=== PATIENT | male | born 1965 | race Caucasian/White ===

== ENCOUNTER 2023-08-09 08:54 | Observation (INO) | payer OTHER, SELFPAY ==
[2023-08-09] VITALS (13 sets, daily range): BP systolic 140–228; BP diastolic 62–143; PULSE 87–116; RESP 14–19; TEMP 36.7–37.3; O2SAT 95–97; BMI 31.4
--- NOTE | 2023-08-09 09:08 | ED.CHESTPAIN ---
HPI - Chest Pain General Chief Complaint: Chest Pain Stated Complaint: SOB/HTN Time Seen by Provider: 08/09/23 09:01 Source: patient and EMS Mode of arrival: EMS Limitations: no limitations History of Present Illness HPI narrative: The 57-year-old male history of opiate use disorder, alcohol use disorder presents to the emergency department for complaints of substernal nonradiating chest pressure and shortness of breath that started this morning at approximately 07:00 while he was sitting, he reports pain got worse around 815 where he experience significant shortness of breath, patient reports it is hard to take a deep breath in. This is never happened to him before. He reports he called 911 because he thought he was having heart attack. Current daily drinker, last drink rum and coke last night. Denies fevers, chills, cough, sore throat, nausea, vomiting, abdominal pain, headache, vision changes, dizziness and weakness. Patient was noted to be hypertensive for EMS, patient explains to me upon arrival that he used to be on medications however he stopped taking them due to issues with his insurance. 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 Allergies Allergy/AdvReac Type Severity Reaction Status Date / Time No Known Allergies Allergy Verified 08/09/23 12:29 Review of Systems Review of Systems: Constitutional : No Weight loss, No Fever, No Chills, No Fatigue, No Malaise ENT/Mouth : No sore throat, No Rhinorrhea Eyes: No Eye Pain, No Swelling, No Redness Cardiovascular : + Chest Pain, + SOB, No Dyspnea on Exertion, No Orthopnea, No Edema, No Palpitations Respiratory : No Cough, No Sputum, No Wheezing Gastrointestinal : No Nausea, No Vomiting, No Diarrhea, No Constipation, No abdominal Pain, No Hematochezia, No Melena Genitourinary : No Dysuria, No Urinary Frequency, No Hematuria, Musculoskeletal : No joint pain, No Myalgias, No Joint Swelling Skin : No Skin Lesions, No rash Neuro : No Weakness, No Numbness, No Dizziness, No Headache Psych : No Anxiety/Panic, No Depression All other systems reviewed and are negative Yes all other systems are reviewed and are negative [facility] Past Medical History Attestation statement: The following information was validated with the patient. Source: old records reviewed and nursing notes reviewed Onset Date is defined in the Problem List Problems that require an onset date and time if occurred within 24 hrs of arrival to the ED Aortic Dissection and Rupture; Neurologic impairment; Cardiopulmonary Arrest; Endotracheal Intubation; Insertion or Replacement of Mechanical Circulatory Assist Device Social History Social History Alcohol intake: current Alcohol type: hard liquor Smoked in Last 30 Days: Yes Use of substances other than those prescribed or required for medical reasons: No Advance Directives: No Advance Directives Information Provided: Yes Physical Exam Vital Signs: Vital Signs: Last Vital Signs Temp 99.1 F 08/09/23 11:48 Pulse 99 08/09/23 11:48 Resp 18 08/09/23 11:48 BP 173/93 H 08/09/23 11:48 Pulse Ox 96 08/09/23 11:48 O2 Del Method Room Air 08/09/23 11:48 BMI result Body Mass Index 31.4 Hypertension noted. Appearance: Alert.? Oriented X3.? No acute distress.? Head: Normocephalic, atraumatic, no step-offs or deformities Eyes: Pupils equal, round and reactive to light.? ENT: Pharynx normal.? Neck: Normal inspection.? Neck supple.? CVS: Rapid rate normal rhythm likely sinus tachycardia heart rate around 120 beats per minute.? Pulses normal.? Respiratory: No respiratory distress.? Breath sounds diminished b/l.? Abdomen: Soft and nontender.? Skin: Skin warm and dry.? Normal skin color.? Normal skin turgor.? Extremities: No lower extremity edema.? No calf ttp. 5/5 strength to bilateral upper and lower extremities Neuro: Oriented X 3.? No motor deficit.? No sensory deficit. CN 2-12 intact Course Reevaluation(s) Reevaluation #1: CBC unremarkable. chemistry no acute findings requiring intervention. Troponin negative, BNP normal. Lipase normal. Ethanol negative. Dimr negative. Noted to have patchy left mid lung zone infiltrates concerns for pneumonia. Will obtain CT for confirmation. Blood cultures, lactic acid and antibiotics ordered. Time: 10:47 Reevaluation #2: Patient now states he is feeling slightly anxious and he thinks it is because he has been drinking a lot lately, he reports he typically does not drink often however due to the holidays he has been drinking more, heart rate still 110, blood pressure is coming down slowly. Patient evidently anxious. IV Ativan ordered. Plans probably hospital admission for pneumonia and likely alcohol withdrawal Time: 11:00 Reevaluation #3: Critical lactic acid 5.5 sepsis alert announced overhead. 30 cc/kilos bolus ordered. Patient getting his 2nd set of cultures at this time , antibiotics ordered. Time: 11:34 Medications Administered Generic Name Dose Route Start Last Admin Trade Name Freq PRN Reason Stop Dose Admin Sodium Chloride 2,814 mls @ 2,814 mls/hr 08/09/23 11:34 08/09/23 12:00 Ns 30 ml/kg infuse over 1 hr (2814 ml) 08/09/23 12:33 2,814 mls/hr IV Administration .Q1H STA Discontinued Medications Generic Name Dose Route Start Last Admin Trade Name Freq PRN Reason Stop Dose Admin Amlodipine Besylate 5 mg 08/09/23 09:09 08/09/23 09:45 Amlodipine Besylate 5 Mg Tablet PO 08/09/23 09:10 5 mg ONCE ONE Administration Protocol Ceftriaxone Sodium 1 gm/ 50 mls @ 100 mls/hr 08/09/23 10:45 08/09/23 11:54 Sodium Chloride IV 08/09/23 11:14 100 mls/hr ONCE ONE Administration Sodium Chloride 1,000 mls @ 999 mls/hr 08/09/23 10:45 08/09/23 10:49 Ns IV 08/09/23 11:45 999 mls/hr .Q1H1M JARED Administration Lorazepam 1 mg 08/09/23 10:47 08/09/23 10:51 Lorazepam 2 Mg/Ml Vial IVPUSH 08/09/23 10:48 1 mg STAT STA Administration Medical Decision Making Medical Decision Making [facility] Narrative: 0900 57-year-old male presents with chest pain and shortness of breath that started suddenly this morning. Physical examination with rapid regular rhythm likely sinus tachycardia heart rate around 120. Breath sounds diminished b/l Concerns for possible hypertensive urgency versus emergency versus arrhythmia versus ACS versus PE vs pna . Unlikely dissection, other differentials include metabolic derangements, alcohol withdrawal last drink was yesterday. Plan labs, imaging, EKG Differential Diagnosis Differential Diagnoses: The differential diagnosis associated with the presentation includes Concerns for possible hypertensive urgency versus emergency versus arrhythmia versus ACS versus PE vs pna. Unlikely dissection, other differentials include metabolic derangements, alcohol withdrawal last drink was yesterday. Admission/Observation Consideration of admission/observation: Escalation of care including admission/observation considered posssible Lab Data MDM Lab Attestation statement: I reviewed the patient's lab results. 08/09/23 09:26 08/09/23 09:26 Labs: Lab Results 08/09/23 08/09/23 Range/Units 09:26 11:05 WBC 6.0 (4.8-10.8) X10*3/uL RBC 4.99 (4.60-5.80) X10*6/uL Hgb 16.8 (14.0-18.0) g/dl Hct 47.0 (42.0-52.0) % MCV 94.2 (80.0-98.0) fL MCH 33.7 H (27.0-33.0) pg MCHC 35.7 (31.0-36.0) g/dl RDW 11.9 (11.0-16.0) % Plt Count 161 (160-400) X10*3/uL MPV 10.0 (9.4-12.4) fL Immature Gran % (Auto) 0.2 (0.0-0.4) % Neut % (Auto) 68.4 (45-73) % Lymph % (Auto) 21.6 (20-40) % [place] % (Auto) 8.0 (2-11) % Eos % (Auto) 1.3 (0-4) % Baso % (Auto) 0.5 (0-2) % Lymph # (Auto) 1.3 (1.2-4.9) X10*3/uL [place] # (Auto) 0.5 (0.1-1.2) X10*3/uL Eos # (Auto) 0.1 (0.0-0.4) X10*3/uL Baso # (Auto) 0.0 (0.0-0.2) X10*3/uL Abs Immat Gran (auto) 0.01 (0.00-0.03) X10*3/uL Absolute Neuts (auto) 4.1 (2.0-8.3) x10*3/uL Absolute Nucleated RBC 0.000 (0.0-0.012) X10*3/uL Nucleated RBC % (auto) 0.0 (0.0-0.2) /100WBC PT 12.0 (11.1-13.3) SEC INR 1.0 (0.9-1.1) D-Dimer High Sensitivty < 150 NG/ML Sodium 139 (135-145) mmol/L Potassium 4.8 (3.3-5.1) mmol/L Chloride 101 (96-108) mmol/L Carbon Dioxide 25 (22-29) mmol/L Anion Gap 18 (12-20) BUN 13 (9-16) mg/dL Creatinine 0.96 (0.5-1.4) mg/dL Estim Creat Clear Calc 96.6 Estimated GFR > 60 Random Glucose 139 H (60-115) mg/dL Lactic Acid 5.5 H* (0.5-2.0) mmol/L Calcium 9.5 (8.4-10.2) mg/dL Magnesium 1.8 (1.6-2.6) mg/dL Total Bilirubin 0.5 (0.0-1.0) mg/dL AST 46 H (5-37) U/L ALT 36 (0-40) U/L Alkaline Phosphatase 127 H (39-117) U/L Troponin I High Sens 3.2 (<3.5-35.0) ng/L B-Natriuretic Peptide 28 (<100) pg/mL Total Protein 7.6 (6.5-8.0) g/dL Albumin 4.3 (3.5-5.0) g/dL Lipase 44 (8-78) U/L Ethyl Alcohol < 10 mg/dL Influenza Type A (PCR) NEGATIVE (Negative) Influenza Type B (PCR) NEGATIVE (Negative) RSV RNA Qual (PCR) NEGATIVE (Negative) SARS-CoV-2 RNA (RT-PCR) NEGATIVE (Negative) Independent Interpretation I performed an independent interpretation of an: EKG (non ischemic ) and Plain X-Ray (pna) Radiology Impression Discussion of test interpretation with radiology: I have reviewed the radiologist's reading. Chronic Conditions Patient?s care impacted by: Other (Alcohol use disorder) Critical Care Time Critical Care Time Critical Care Time: Yes Total Critical Care Time: 45 Attestation: I attest to this time spent taking care of the patient, obtaining history, physical, reviewing labs, imaging, speaking to my attending, speaking to specialist. Discharge Plan Discharge Clinical Impression: Pneumonia, Chest pain, Elevated lactic acid level, Alcohol abuse with withdrawal Patient Disposition: Still a Patient
--- NOTE | 2023-08-09 13:13 | PM.IMHP ---
History of Present Illness Date of Service: 08/09/23 Attending physician on admission: Varinder Booth Chief Complaint: SOB, chest pain Pt is a 57-year-old male with a PMH significant for?HTN, GERD, opiate and alcohol use disorder not on home meds who presents to the ED for evaluation of sudden-onset SOB and chest pain. Pt states he woke up this morning at 6:30 and was laying in bed when he had an acute episode of SOB where he felt like he could not breath. He sat up to watch TV and feeling quickly passed. An hour or so later pt was getting ready to go to work and had a more prolonged episode of SOB that was accompanied by left-sided, non-radiating chest pain he describes as feeling like pinpricks over his heart. Reports having similar sensations with some frequency but never this severe. Pt had call an ambulance since he thought he was having a heart attack. Pt also notes he has been experiencing frequent right-sided headaches and pressure behind his right eye for the past few months that he ascribed to sinus infection. Has been taking lots of ibuprophen and Aleve the past 2 months for the pain to little effect. Chronic cough at baseline. Denies fever, chills, N/V, abdominal pain. Of note, pt used to be on anti-hypertensives but stopped taking them years ago because his insurance wanted to have him purchase a 3-month supply and he didn't feel like the medications were doing anything for him. Also notes he had an EGD some time ago that found evidence of GERD but has not taken any medication for this. He has not seen his PCP for at least 5+ years. A life-long smoker, currently smoking 1-pack a day. Does not carry a COPD diagnosis and not on home inhaler. Has been drug-free for over 10 years. In the ED pt with elevated temperature of 99.1 degrees, tachycardia up to 116, and hypertensive up to 228/143, satting at 97% on RA. Labs were significant for lactic acid 5.5, AST 46, alk-phos 127, otherwise unremarkable. No leukocytosis. Stable H&H. Electrolytes WNL. D-dimer negative. Troponin 3.2, BNP 28. Ethyl alcohol levels undetectable. Tested negative for influenza type a and B, RSV, COVID. CXR showed patchy left mid lung zone infiltrates. CT?of chest was unremarkable, finding the abnormality visualized on CXR reflected confluence of shadows. EKG demonstrated sinus tachycardia of 114 with left axis deviation and no evidence of significant ST elevations or depressions. Pt was treated with amlodipine, IVF, lorazepam, ceftriaxone, azithromycin. Pt will be admitted to the hospital under observation for hypertensive urgency. Review of Systems Review of Systems: Negative except for that stated in the [facility] Medical History (Updated 08/09/23 @ 15:24 by KARLA Munoz) GERD (gastroesophageal reflux disease) HTN (hypertension) Social History Alcohol intake: current Alcohol type: hard liquor Smoked in Last 30 Days: Yes Use of substances other than those prescribed or required for medical reasons: No Advance Directives: No Advance Directives Information Provided: Yes Meds Allergies Allergy/AdvReac Type Severity Reaction Status Date / Time No Known Allergies Allergy Verified 08/09/23 12:29 Home Medications Medication Instructions Recorded Confirmed Last Taken Type ibuprofen 200 mg tablet 400 mg PO Q8H PRN Pain 08/09/23 08/09/23 Unknown History naproxen sodium 220 mg tablet 220 mg PO BID PRN Pain 08/09/23 08/09/23 Unknown History (Aleve) sodium chloride 0.65 % nasal spray 1 spray intranasal BID PRN 08/09/23 08/09/23 Unknown History aerosol (Saline Mist) Congestion Physical Exam Vital Signs and Narrative: Vital Signs: Last Vital Signs Temp 99.1 F 08/09/23 11:48 Pulse 99 08/09/23 11:48 Resp 18 08/09/23 11:48 BP 173/93 H 08/09/23 11:48 Pulse Ox 96 08/09/23 11:48 O2 Del Method Room Air 08/09/23 11:48 BMI result Body Mass Index 31.4 Constitutional: Alert, in no acute distress. Mental Status: Oriented to person, place and time. Eyes: Pupils are equal, round, and reactive to light. Ear, Nose, and Throat: Oropharynx clear, mucous membranes moist. Ears and nose without deformities. Trachea midline. Sinuses non-tender. Respiratory: Diffuse expiratory wheezing bilaterally. Cardiovascular: S1, S2 regular. No murmurs, rubs, or gallops. Gastrointestinal: Abdomen soft, non-tender, non-distended. Normal bowel sounds. Neurologic: Cranial nerves II-XII are grossly intact bilaterally. No focal neurological deficits. Moves all extremities spontaneously. Skin: Warm, dry. Musculoskeletal: No cyanosis or clubbing. Extremities: No edema. Psychiatric: Normal mood and affect. Results Labs 08/09/23 09:26 08/09/23 09:26 Labs: Laboratory Results - last 24 hr 08/09/23 08/09/23 09:26 11:05 MCV 94.2 MCH 33.7 H MCHC 35.7 RDW 11.9 Plt Count 161 MPV 10.0 Immature Gran % (Auto) 0.2 Neut % (Auto) 68.4 Lymph % (Auto) 21.6 [place] % (Auto) 8.0 Eos % (Auto) 1.3 Baso % (Auto) 0.5 Lymph # (Auto) 1.3 [place] # (Auto) 0.5 Eos # (Auto) 0.1 Baso # (Auto) 0.0 Abs Immat Gran (auto) 0.01 Absolute Neuts (auto) 4.1 Absolute Nucleated RBC 0.000 Nucleated RBC % (auto) 0.0 PT 12.0 INR 1.0 D-Dimer High Sensitivty < 150 Anion Gap 18 Estim Creat Clear Calc 96.6 Estimated GFR > 60 Random Glucose 139 H Lactic Acid 5.5 H* Calcium 9.5 Magnesium 1.8 Total Bilirubin 0.5 AST 46 H ALT 36 Alkaline Phosphatase 127 H B-Natriuretic Peptide 28 Total Protein 7.6 Albumin 4.3 Lipase 44 Ethyl Alcohol < 10 Influenza Type A (PCR) NEGATIVE Influenza Type B (PCR) NEGATIVE RSV RNA Qual (PCR) NEGATIVE SARS-CoV-2 RNA (RT-PCR) NEGATIVE Imaging Radiologist's Impressions: Impressions Chest X-Ray 08/09/23 09:30 IMPRESSION: Patchy left mid lung zone infiltrates; follow-up is recommended to confirm clearing. Chest CT 08/09/23 11:24 IMPRESSION: 1. Unremarkable CT examination of the chest. The abnormality visualized on recent chest radiography reflected confluence of shadows. 2. Incidental left coronary artery calcifications. Fleischner guidelines were followed. Assessment and Plan (1) Hypertensive urgency: Status: Acute Plan Pt is a 57-year-old male with a PMH significant for?HTN, GERD, opiate and alcohol use disorder not on home meds who presents to the ED for evaluation of sudden-onset SOB and chest pain. Pt will be admitted to the hospital under observation for hypertensive urgency. Hypertensive urgency BP as high as 228/143, currently 190/100 Patient previously on antihypertensives, but stopped taking them on his own; has not seen PCP for 5+ years Has been experiencing right-sided headaches and eye pressure for the past 2 months Patient given amlodipine 5 mg in ED Will treat lisinopril 10mg daily, amlodipine 5 mg daily Monitor BP closely Shortness of breath Lifelong smoker currently smoking 1 pack daily, does not carry COPD diagnosis Diffuse wheezing on auscultation Patient not hypoxic Will treat with Daniel Hayes-Natalie GERD Hx of GERD not on home meds Has been taking chronic ibuprofen and Aleve daily for past 2 months, drinks alcohol daily Will give one dose of Protonix IV Will start on famotidine 20 mg daily Pt should avoid NSAIDS Elevated lactic acid, resolved Initial lactic acid 5.5 Pt recevied IVF in ED with repeat 0.7 Not due to sepsis, no SIRS criteria, no sign of bacterial infection Alcohol use disorder Pt daily drinker of gin and tonics, 2+ drinks daily No hx of withdrawal Monitor on CIWA Nicotine dependence Lifelong smoker of 1 pack daily NRT Smoking cessation counseled Full Code Attending:?Dr. Booth DVT Prophylaxis: Lovenox Patient will be admitted to the hospital under observation for treatment and further evaluation of hypertensive urgency. Quality Stroke Does the patient have a stroke diagnosis?: No VTE Prior VTE?: No VTE Risk Level:: Medical - moderate - high VTE Device Contraindication: Treatment Not Indicated VTE Drug Contraindication: N/A - Med Ordered
--- NOTE | 2023-08-09 13:15 | PHA.MEDREC ---
Pharmacy Consult ? Medication Reconciliation Pharmacy has completed the medication reconciliation. Spoke to patient's to confirm meds.
[2023-08-10] VITALS: BP 180/92; PULSE 103; RESP 16; TEMP 36.3; O2SAT 98
[2023-08-10 03:16] VITALS: BP 160/98; PULSE 94; RESP 18; TEMP 36.3; O2SAT 96
--- NOTE | 2023-08-10 07:41 | HO.PM.IMPN ---
Subjective Subjective Date of Service: 08/10/23 Interval History: Seen in follow up for hypertensive urgency Interval history: Still reports 2/10 pressure R eye. No blurred vision, vision loss. Reports consuming about 2 drinks (with a couple shots ) daily. Remains hypertensive Review of Systems Review of Systems: Yes all other systems are reviewed and are negative Physical Exam Vital Signs: Vital Signs: Last Vital Signs Temp 97.3 F 08/10/23 03:16 Pulse 94 08/10/23 03:16 Resp 18 08/10/23 03:16 BP 160/98 H 08/10/23 03:16 Pulse Ox 96 08/10/23 03:16 O2 Del Method Room Air 08/10/23 03:16 BMI result Body Mass Index 31.4 Constitutional - Awake and Alert, No apparent distress Eyes - PERRLA, EOMI. R eye with slight injection. On fundoscopic exam, no retinal hemorrhages noted, no papilledema. Visual shaw in tact. Acuity OU 20/20 OS 20/20 OD 20/20. IOP R 21, L 9 Cardiovascular - S1S2, RRR, No edema Respiratory - Normal lung expansion, Normal respiratory effort, No respiratory distress, CTA bilaterally Extremities - no calf tenderness bilaterally, no swelling Skin - Warm/Dry Neurological - Alert & oriented x3 Psychological - Appropriate affect Objective Data Active Medications Acetaminophen (Acetaminophen 325 Mg Tablet) 650 mg PO Q6H PRN PRN Reason: Pain, Mild (Pain Scale 1-3) Albuterol/Ipratropium (Albuterol/Iprat 2.5/0.5mg 3 Ml Ampul.Neb) 3 ml INHALE RQ4H WHILE AWAKE [facility] Last Admin: 08/09/23 19:12 Dose: Not Given Documented By: LARRY Non-Admin Reason: Patient Refused Amlodipine Besylate (Amlodipine Besylate 10 Mg Tablet) 10 mg PO DAILY [facility]; Protocol Benzonatate (Benzonatate 100 Mg Capsule) 100 mg PO TID PRN PRN Reason: Cough Docusate Sodium (Docusate Sodium 100 Mg Capsule) 100 mg PO DAILY PRN PRN Reason: Constipation Enoxaparin Sodium (Enoxaparin Sodium 40 Mg/0.4 Ml Syringe) 40 mg SUBCUT Q24H [facility] Last Admin: 08/09/23 16:11 Dose: 40 mg Documented By: NIKKY Famotidine (Famotidine 20 Mg Tablet) 20 mg PO DAILY [facility] Lisinopril (Lisinopril 10 Mg Tablet) 10 mg PO DAILY [facility]; Protocol Last Admin: 08/09/23 16:11 Dose: 10 mg Documented By: NIKKY Melatonin (Melatonin 3 Mg Tablet) 6 mg PO BEDTIME PRN PRN Reason: Insomnia Methylprednisolone Sodium Succinate (Methylprednisolone Sod Succ 40 Mg/Ml Vial) 40 mg IVPUSH Q12H [facility] Last Admin: 08/10/23 03:21 Dose: 40 mg Documented By: TEO Naproxen (Naproxen 250 Mg Tablet) 250 mg PO BID PRN PRN Reason: Pain, Mild (Pain Scale 1-3) Nicotine (Nicotine 21 Mg Patch.Td24) 21 mg TRANSDERMA DAILY [facility] Last Admin: 08/09/23 16:11 Dose: 21 mg Documented By: NIKKY Ondansetron HCl (Ondansetron Hcl 4 Mg/2 Ml Vial) 4 mg IVPUSH Q8H PRN PRN Reason: Nausea and Vomiting Sodium Chloride (Sodium Chloride 0.65 % Nasal 44 Ml Sprbtl) 1 spray NOSTRIL-B BID PRN PRN Reason: Congestion Sodium Chloride (0.9 % Sodium Chloride Flush 3 Ml Syringe) 3 ml IVFLUSH QSHIFT [facility] Last Admin: 08/10/23 00:04 Dose: Not Given Documented By: TEO Non-Admin Reason: Previously Administered Labs 08/09/23 09:26 08/09/23 09:26 Labs: Laboratory Results - last 24 hr 08/09/23 08/09/23 08/09/23 09:26 11:05 13:43 MCV 94.2 MCH 33.7 H MCHC 35.7 RDW 11.9 Plt Count 161 MPV 10.0 Immature Gran % (Auto) 0.2 Neut % (Auto) 68.4 Lymph % (Auto) 21.6 [place] % (Auto) 8.0 Eos % (Auto) 1.3 Baso % (Auto) 0.5 Lymph # (Auto) 1.3 [place] # (Auto) 0.5 Eos # (Auto) 0.1 Baso # (Auto) 0.0 Abs Immat Gran (auto) 0.01 Absolute Neuts (auto) 4.1 Absolute Nucleated RBC 0.000 Nucleated RBC % (auto) 0.0 PT 12.0 INR 1.0 D-Dimer High Sensitivty < 150 Anion Gap 18 Estim Creat Clear Calc 96.6 Estimated GFR > 60 Random Glucose 139 H Lactic Acid 5.5 H* Lactic Acid F/U @ 2Hr Calcium 9.5 Magnesium 1.8 Total Bilirubin 0.5 AST 46 H ALT 36 Alkaline Phosphatase 127 H B-Natriuretic Peptide 28 Total Protein 7.6 Albumin 4.3 Lipase 44 Procalcitonin 0.07 Urine Color Yellow Urine Appearance Clear Urine pH 5.5 Ur Specific [place] <= 1.005 Urine Protein Negative Urine Glucose (UA) Negative Urine Ketones Negative Urine Blood Negative Urine Nitrite Negative Ur Leukocyte Esterase Negative Urine Opiates Screen Not Detected Urine Fentanyl Screen Not Detected Ur Barbiturates Screen Not Detected Ur Phencyclidine Scrn Not Detected Ur Amphetamines Screen Not Detected U Benzodiazepines Scrn Not Detected Urine Cocaine Screen Not Detected U Marijuana (THC) Screen Not Detected Ethyl Alcohol < 10 Influenza Type A (PCR) NEGATIVE Influenza Type B (PCR) NEGATIVE RSV RNA Qual (PCR) NEGATIVE SARS-CoV-2 RNA (RT-PCR) NEGATIVE 08/09/23 13:53 MCV MCH MCHC RDW Plt Count MPV Immature Gran % (Auto) Neut % (Auto) Lymph % (Auto) [place] % (Auto) Eos % (Auto) Baso % (Auto) Lymph # (Auto) [place] # (Auto) Eos # (Auto) Baso # (Auto) Abs Immat Gran (auto) Absolute Neuts (auto) Absolute Nucleated RBC Nucleated RBC % (auto) PT INR D-Dimer High Sensitivty Anion Gap Estim Creat Clear Calc Estimated GFR Random Glucose Lactic Acid Lactic Acid F/U @ 2Hr 0.7 Calcium Magnesium Total Bilirubin AST ALT Alkaline Phosphatase B-Natriuretic Peptide Total Protein Albumin Lipase Procalcitonin Urine Color Urine Appearance Urine pH Ur Specific [place] Urine Protein Urine Glucose (UA) Urine Ketones Urine Blood Urine Nitrite Ur Leukocyte Esterase Urine Opiates Screen Urine Fentanyl Screen Ur Barbiturates Screen Ur Phencyclidine Scrn Ur Amphetamines Screen U Benzodiazepines Scrn Urine Cocaine Screen U Marijuana (THC) Screen Ethyl Alcohol Influenza Type A (PCR) Influenza Type B (PCR) RSV RNA Qual (PCR) SARS-CoV-2 RNA (RT-PCR) Assessment and Plan (1) Hypertensive urgency: Status: Acute (2) Alcohol abuse with withdrawal: Status: Acute Plan Pt is a 57-year-old male with a PMH significant for?HTN, GERD, opiate and alcohol use disorder not on home meds who presents to the ED for evaluation of sudden-onset SOB and chest pain. Pt will be admitted to the hospital under observation for hypertensive urgency. Hypertensive urgency BP as high as 228/143, currently 190/100. Remains hypertensive- ?etoh withdrawal Patient previously on antihypertensives, but stopped taking them on his own; has not seen PCP for 5+ years Has been experiencing right-sided headaches and eye pressure for the past 2 months Will treat lisinopril 10mg daily, amlodipine 10 mg daily Monitor BP closely Eye pressure no retinal hemorrhages or papilledema noted on funduscopic exam Check IOP Shortness of breath Lifelong smoker currently smoking 1 pack daily, does not carry COPD diagnosis Diffuse wheezing on auscultation Patient not hypoxic Will treat with Carina Hayes GERD Hx of GERD not on home meds Has been taking chronic ibuprofen and Aleve daily for past 2 months, drinks alcohol daily Will give one dose of Protonix IV Will start on famotidine 20 mg daily Pt should avoid NSAIDS Elevated lactic acid, resolved Initial lactic acid 5.5 Pt recevied IVF in ED with repeat 0.7 Not due to sepsis, no SIRS criteria, no sign of bacterial infection Alcohol use disorder Pt daily drinker of gin and tonics, 2+ drinks daily No hx of withdrawal Monitor on CIWA Nicotine dependence Lifelong smoker of 1 pack daily NRT Smoking cessation counseled Full Code DVT Prophylaxis: Lovenox Patient requires ongoing inpt stay Quality Stroke Does the patient have a stroke diagnosis?: No VTE Prior VTE?: No VTE Risk Level:: Medical - moderate - high VTE Device Contraindication: Treatment Not Indicated VTE Drug Contraindication: N/A - Med Ordered
[2023-08-10 08:00] VITALS: BP 182/102; PULSE 97; RESP 18; TEMP 36.1; O2SAT 97
[2023-08-10 11:35] VITALS: BP 170/76
[2023-08-10 12:00] VITALS: BP 141/90; PULSE 117; RESP 17; TEMP 36.4; O2SAT 97
--- NOTE | 2023-08-10 13:51 | PM.DS ---
DS: Providers Provider Date of Service: 08/10/23 Date of admission: 08/09/23 15:48 Date of discharge: 08/10/23 Primary care physician: Unknown Physician Admitting clinician: Stevan Sprague Attending physician on admission: Varinder Booth Attending physician on discharge: Hemanth Lee Discharging clinician: Lilo Koo DS: Diagnosis Discharge Diagnosis (1) Hypertensive urgency: Status: Acute (2) Alcohol abuse with withdrawal: Status: Acute DS: Summary Hospital Course Hospital Course: HPI on admission by Stevan Sprague PA-C: Pt is a 57-year-old male with a PMH significant for?HTN, GERD, opiate and alcohol use disorder not on home meds who presents to the ED for evaluation of sudden-onset SOB and chest pain. Pt states he woke up this morning at 6:30 and was laying in bed when he had an acute episode of SOB where he felt like he could not breath. He sat up to watch TV and feeling quickly passed. An hour or so later pt was getting ready to go to work and had a more prolonged episode of SOB that was accompanied by left-sided, non-radiating chest pain he describes as feeling like pinpricks over his heart. Reports having similar sensations with some frequency but never this severe. Pt had call an ambulance since he thought he was having a heart attack. Pt also notes he has been experiencing frequent right-sided headaches and pressure behind his right eye for the past few months that he ascribed to sinus infection. Has been taking lots of ibuprophen and Aleve the past 2 months for the pain to little effect. Chronic cough at baseline. Denies fever, chills, N/V, abdominal pain. Of note, pt used to be on anti-hypertensives but stopped taking them years ago because his insurance wanted to have him purchase a 3-month supply and he didn't feel like the medications were doing anything for him. Also notes he had an EGD some time ago that found evidence of GERD but has not taken any medication for this. He has not seen his PCP for at least 5+ years. A life-long smoker, currently smoking 1-pack a day. Does not carry a COPD diagnosis and not on home inhaler. Has been drug-free for over 10 years. In the ED pt with elevated temperature of 99.1 degrees, tachycardia up to 116, and hypertensive up to 228/143, satting at 97% on RA. Labs were significant for lactic acid 5.5, AST 46, alk-phos 127, otherwise unremarkable. No leukocytosis. Stable H&H. Electrolytes WNL. D-dimer negative. Troponin 3.2, BNP 28. Ethyl alcohol levels undetectable. Tested negative for influenza type a and B, RSV, COVID. CXR showed patchy left mid lung zone infiltrates. CT?of chest was unremarkable, finding the abnormality visualized on CXR reflected confluence of shadows. EKG demonstrated sinus tachycardia of 114 with left axis deviation and no evidence of significant ST elevations or depressions. Pt was treated with amlodipine, IVF, lorazepam, ceftriaxone, azithromycin. Pt will be admitted to the hospital under observation for hypertensive urgency. Hospital Course: Pt observed overnight for hypertensive urgency. He did not require IV antihypertensives and was given amlodipine 5mg and lisinopril 10mg at admission. Overnight, blood pressures gradually lowered though remained hypertensive with sbp 140-180 and diastolic 62-102. On morning of discharge antihypertensives adjusted and given lisinopril 10mg, amlodipine 10mg , and hctz 25mg with improvement in blood pressure to 141/90. He had been reporting 3/10 right eye pressure without any associated visual changes/loss ongoing for several weeks. Visual acuity was 20/20 OU, OS, OD. Visual shaw noted to be in tact. PERRLA. No conjunctival injection. IOP R eye 21, IOP L ete 9. Discussed with Dr. Chavez in ophthamology, outpt follow up recommended, no immediate intervention need. He was also monitored on CIWA given alcohol abuse and was not found to be actively withdrawing though did require ativan prn for anxiety x2. He was counseled on cutting back on alcohol use to no more than 1-2 (measured) servings of alcohol in a day. Also advised to quit smoking, given nicotine patches. He will be discharged on lisinopril 10mg BID, hctz 25mg daily, and amlodipine 10mg daily. Blood pressure cuff prescribed. Advised to follow up with PCP soon. Time spent discussing smoking cessation with patient: 3 to 10 minutes Status at Discharge Functional status at discharge: independent ambulation Overall status at discharge: patient is progressing back to baseline Time Attestation Discharge coordination time: Greater than 30 minutes Quality: Safe Use of Opioids Does Pt have an Active Cancer Diagnosis on the Problem List?: No Quality: Stroke Does the patient have a stroke diagnosis?: No Physical Exam Vital Signs: Vital Signs: Last Vital Signs Temp 97.5 F 08/10/23 12:00 Pulse 117 H 08/10/23 12:00 Resp 17 08/10/23 12:00 BP 141/90 H 08/10/23 12:00 Pulse Ox 97 08/10/23 12:00 O2 Del Method Room Air 08/10/23 12:00 BMI result Body Mass Index 31.4 Constitutional - Awake and Alert, No apparent distress Eyes - PERRLA, EOMI. Visual shaw in tact. Visual acuity: OU 20/20. OD 20/20. OS 20/20. IOP R eye 21, L eye 9 Cardiovascular - S1S2, RRR, No edema Respiratory - Normal lung expansion, Normal respiratory effort, No respiratory distress, CTA bilaterally Extremities - no calf tenderness bilaterally, no swelling Skin - Warm/Dry Neurological - Alert & oriented x3, CN II-XII in tact Psychological - Appropriate affect DS: Data Data Completed and Pending Labs on day of discharge: Laboratory Results - last 24 hr 08/09/23 08/09/23 08/09/23 09:26 13:43 13:53 Lactic Acid F/U @ 2Hr 0.7 Procalcitonin 0.07 Urine Color Yellow Urine Appearance Clear Urine pH 5.5 Ur Specific [place] <= 1.005 Urine Protein Negative Urine Glucose (UA) Negative Urine Ketones Negative Urine Blood Negative Urine Nitrite Negative Ur Leukocyte Esterase Negative Urine Opiates Screen Not Detected Urine Fentanyl Screen Not Detected Ur Barbiturates Screen Not Detected Ur Phencyclidine Scrn Not Detected Ur Amphetamines Screen Not Detected U Benzodiazepines Scrn Not Detected Urine Cocaine Screen Not Detected U Marijuana (THC) Screen Not Detected Preliminary micro results at discharge 08/09/23 11:36 Blood Culture - Preliminary Blood - Venous No growth after 24 hours. 08/09/23 11:05 Blood Culture - Preliminary Blood - Venous No growth after 24 hours. Discharge Plan Discharge Anticipated Discharge Date/Time: 08/10/23 14:10 Patient Disposition: Home, Self-Care Discharge Diagnosis: hypertensive urgency Referrals: Physician,Unknown J [Primary Care Provider] - 1 Week Discharge Medications: New (DME) blood pressure monitor [Blood Pressure Kit] Kit See Rx Instructions .Route Qty: 1 0RF Rx Instructions: As directed nicotine 21 mg/24 hr Patch 24 Hour 21 mg transdermal DAILY Qty: 30 2RF lisinopril 10 mg tablet 10 mg PO BID Qty: 120 0RF hydrochlorothiazide 25 mg tablet 25 mg PO DAILY Qty: 60 0RF amlodipine 10 mg tablet 10 mg PO DAILY Qty: 60 0RF trazodone 50 mg tablet 50 mg PO BEDTIME PRN (Reason: insomnia) Qty: 60 0RF Continued naproxen sodium [Aleve] 220 mg Tablet 220 mg PO BID PRN (Reason: Pain) Saline Mist 0.65 % Aerosol,[place] 1 spray INTRANASAL BID PRN (Reason: Congestion) Discontinued ibuprofen 200 mg Tablet 400 mg PO Q8H PRN (Reason: Pain) Discharge Orders: Discharge Order (Routine); Ordered 08/10/23 Ordered By: Lilo Koo Diet: Advance to usual diet Activity on Discharge: As tolerated Stand Alone Forms: Patient Portal Discharge page Other Ambulatory Orders: Basic Metabolic Panel (Routine) Timeframe: 1 Week Facility: [facility] - Location: Laboratory Ordered By: Lilo Koo Care Plan Goals: Blood pressure control Health Concerns: Hypertensive urgency Right ocular pressure Plan of Treatment: Hypertensive urgency- resolved Hypertension -Take hydrochlorothiazide 25 mg daily, amlodipine 10 mg daily, and lisinopril 10 mg twice daily -follow low-sodium diet -cut back on alcohol intake, stop smoking -check blood pressure daily with goal being less than 140/90. Symptoms of low blood pressure- dizziness, blurred vision, confusion, weakness Right ocular pressure -Follow up with ophthalmology outpatient Cigarette smoking -strongly recommend quitting. this will also help blood pressure Insomnia -Can take trazodone 50mg nightly for sleep. Avoid alcohol Assessment: See abov. See discharge summary Patient Instructions: Chronic Hypertension (DC)
--- NOTE | 2023-08-10 14:39 | MHC.CM.PN ---
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
== END 2023-08-10 14:47 | disposition home or self-care (01) ==
LOC: HO.ED 12:36 → HO.EDOVER 15:54 → HO.S3 19:05
PROVIDERS: Admitting Provider Student in an Organized Health Care Education/Training Program; Emergency Provider Student in an Organized Health Care Education/Training Program; Visit Provider Physician Assistant
DX: I16.0 Hypertensive urgency (principal); J18.9 Pneumonia, unspecified organism; I10 Essential (primary) hypertension; R07.9 Chest pain, unspecified; R06.02 Shortness of breath; R74.02 Elevation of levels of lactic acid dehydrogenase [LDH]; F10.239 Alcohol dependence with withdrawal, unspecified; K21.9 Gastro-esophageal reflux disease without esophagitis; G47.00 Insomnia, unspecified; F17.210 Nicotine dependence, cigarettes, uncomplicated; Z20.822 Contact with and (suspected) exposure to COVID-19; Z20.828 Contact with and (suspected) exposure to other viral communicable diseases
CPT/HCPCS: 0241U; 36415; 71045; 71250; 80053; 80307; 81003; 83605; 83690; 83735; 83880; 84145; 84484; 85025; 85379; 85610; 87040; 93005; 94640; 96361; 96365; 96372; 96375; 96376; 99221; 99285; C9113; J0696; J1650; J1920; J2060; J2920

== ENCOUNTER → 2023-08-09 08:54 | Outpatient (BNV) | payer OTHER, SELFPAY | PROVIDERS: Admitting Provider Student in an Organized Health Care Education/Training Program; Emergency Provider Student in an Organized Health Care Education/Training Program; Visit Provider Internal Medicine Cardiovascular Disease | DX: R00.0 Tachycardia, unspecified (principal); R94.31 Abnormal electrocardiogram [ECG] [EKG] | CPT/HCPCS: 93010 ==

== ENCOUNTER → 2023-08-09 15:48 | Outpatient (BNV) | payer OTHER, SELFPAY | PROVIDERS: Admitting Provider Student in an Organized Health Care Education/Training Program; Emergency Provider Student in an Organized Health Care Education/Training Program; Visit Provider Student in an Organized Health Care Education/Training Program | DX: I16.0 Hypertensive urgency (principal); F10.139 Alcohol abuse with withdrawal, unspecified | CPT/HCPCS: 99223; 99239 ==

== ENCOUNTER 2023-10-11 10:39 | Outpatient (AMB) | payer OTHER, SELFPAY ==
--- NOTE | 2023-10-11 11:55 | MHC.OFFWIV ---
Intake Vital Signs 10/11/23 11:56 Weight 199 lb BP 130/80 Blood Pressure Location Lt brachial Position Sitting Pulse 98 Pulse Source Pulse Oximeter Temp 98.5 F Temp Source Temporal Artery Scan Pulse Oximetry (%) 99 Oxygen Delivery Method Room Air Intake Visit Reasons: EP Medication Refills from [facility] Intake Note: pt is here today medication refill Patient Tobacco Use Status: Current everyday Tobacco user Allergies No Known Allergies Allergy (Verified 10/11/23 11:55) Do you need a note to return to daycare/school/sports/work: No HPI HPI Comments History of Present Illness Details 57 y/o male pt presents to walk in clinic asking for medication refills. Pt has Hypertension and currently takes Lisinopril, HCTZ and Amlodopine daily. He currently has not Primary care doctor. [facility] Medical History (Updated 08/18/23 @ 00:02 by Arthur Willson) GERD (gastroesophageal reflux disease) HTN (hypertension) Social History Alcohol intake: current Alcohol type: hard liquor Comment: pt refused all alarms, pt A&OX4, steady on feet, just hx of a fall Patient Tobacco Use Status: Current everyday Tobacco user Tobacco use type: Cigarette Cigarette Packs Per Day: 1 Cigarettes Per Day: 20.0 Second Hand Smoke Exposure: Yes service: No Review of Systems Const All systems reviewed & are unremarkable except as noted in HPI and below Physical Exam Vital Signs: Last Vital Signs Temp 98.5 F 10/11/23 11:56 Pulse 98 10/11/23 11:56 BP 130/80 10/11/23 11:56 Pulse Ox 99 10/11/23 11:56 Oxygen Delivery Method Room Air 10/11/23 11:56 Const General: comfortable and no acute distress Nutritional Appearance: obese Orientation/consciousness: patient oriented x3 HEENT Head: Yes normocephalic Resp Effort & Inspection: normal respiratory effort and able to speak in complete sentences Auscultation: clear to auscultation bilaterally, no crackles, no rales, no rhonchi and no wheezes Cardio Rate: regular rate Rhythm: regular rhythm Neuro General: patient oriented x3, gait normal, moves all extremities and no focal motor deficits Extrem General: Yes full ROM Psych Speech and movement: Normal speech and movement present Affect: normal affect Attitude: cooperative Assessment & Plan Assessment & Plan (1) Hypertension: Code(s): I10 - Essential (primary) hypertension Qualifiers: Hypertension type: primary hypertension Qualified Code(s): I10 - Essential (primary) hypertension Plan: - Diet and lifestyle changes - Pt needs to establish PCP for further refills. Medications: New lisinopril 20 mg PO DAILY 90 tabs 0RF I10 - Essential (primary) hypertension Refilled hydrochlorothiazide 25 mg PO DAILY 90 tabs 1RF I10 - Essential (primary) hypertension amlodipine 10 mg PO DAILY 90 tabs 1RF I10 - Essential (primary) hypertension Coding Level of Care Code Est Pt Level 3 (32668) Diagnoses Primary hypertension I10 Hypertension type: primary hypertension Time Spent (min) 15
[2023-10-11 11:56] VITALS: BP 130/80; PULSE 98; TEMP 36.9; O2SAT 99
== END 2023-10-11 12:45 | disposition home or self-care (01) ==
PROVIDERS: Visit Provider Nurse Practitioner Family
DX: I10 Essential (primary) hypertension (principal)
CPT/HCPCS: 99213